=== PATIENT | male | born 1975 | race Caucasian/White ===

== ENCOUNTER 2019-09-14 08:28 | Inpatient (IN) | payer MEDICARE, MEDICAID ==
[~2019-09-14] VITALS: Ht 185.4 cm; Wt 82.6 kg
[2019-09-14 09:35] VITALS: BP 107/58
[2019-09-14] MEDS ORDERED: OLAN10TA3 PO (09:56)
[2019-09-14] MEDS ORDERED: ZOLPIDEM TARTRATE 10 MG TABLET PO PRN (11:15)
[2019-09-14] MEDS ORDERED: HALOPERIDOL 5 MG TABLET PO PRN (11:15)
[2019-09-14] MEDS ORDERED: LORazepam 2 MG TABLET PO PRN (11:15)
[2019-09-14 11:58] VITALS: BP 104/72
[2019-09-14] MEDS: FLUoxetine HCL 20 MG CAPSULE PO SCH (12:35)
[2019-09-14] MEDS ORDERED: ONDANSETRON HCL 4 MG TABLET PO PRN (13:00)
[2019-09-14] MEDS ORDERED: ALBUTEROL SULFATE HFA 90 MCG/PUFF 8 GM INHALER IH PRN (13:00)
[2019-09-14] MEDS ORDERED: DOCUSATE SODIUM 100 MG CAPSULE PO PRN (13:00)
[2019-09-14] MEDS ORDERED: MAG HYDROX/AL HYDROX/SIMETH ES 30 ML SUSPENSION UDCUP PO PRN (13:00)
[2019-09-14] MEDS ORDERED: IBUPROFEN 400 MG TABLET PO PRN (13:00)
[2019-09-14] MEDS ORDERED: MAGNESIUM HYDROXIDE SUSPENSION 30 ML UDCUP PO PRN (13:00)
[2019-09-14] MEDS ORDERED: NICOTINE 14 MG/24 HOUR PATCH TD PRN (13:00)
[2019-09-14] MEDS ORDERED: GuaiFENesin/D-METHORPHAN [SUGAR-FREE] 200-20MG/10 ML SYRUP UDCUP PO PRN (13:00)
[2019-09-14] MEDS ORDERED: CloNIDine HCL 0.1 MG TABLET PO PRN (13:00)
[2019-09-14] MEDS ORDERED: PETROLATUM,WHITE 28 GM JELLY TP PRN (13:00)
[2019-09-14] MEDS ORDERED: LOPERAMIDE HCL 2 MG CAPSULE PO PRN (13:00)
[2019-09-14] MEDS ORDERED: PNEUMOCOCCAL VACCINE POLYVALENT 0.5 ML VIAL [PPSV23] IM ONE (13:15)
[2019-09-14 16:13] VITALS: BP 126/76
[2019-09-14] MEDS: OLANZapine 10 MG RAPDIS TABLET PO SCH (20:41)
[2019-09-15 00:32] VITALS: BP 103/63
[2019-09-15 08:06] VITALS: BP 120/68
[2019-09-15 08:23] LABS: BASOPHILS % (AUTO) 1.2 % (0.0-2.0); EOSINOPHILS % (AUTO) 8.8 % (1.0-6.0); HEMATOCRIT 41.6 % (41-53); LYMPHOCYTES # (AUTO) 1.6 K/uL (1.0-4.8); LYMPHOCYTES % (AUTO) 27.1 % (22.0-44.0); MEAN CORPUSCULAR HEMOGLOBIN 30.8 pg (26.0-34.0); MEAN CORPUSCULAR HGB CONC 33.7 G/dL (31.0-37.0); MEAN CORPUSCULAR VOLUME 91 fL (80-100); MONOCYTES # (AUTO) 0.6 K/uL (0.1-1.0); MONOCYTES % (AUTO) 9.4 % (2.0-9.0); NEUTROPHILS # (AUTO) 3.2 K/uL (1.8-7.7); NEUTROPHILS % (AUTO) 53.5 % (40.0-70.0); PLATELET COUNT (AUTO) 276 K/uL (150-450); RED BLOOD CELL COUNT(AUTO) 4.55 MIL/uL (4.50-5.90)
[2019-09-15 09:00] LABS: ALANINE AMINOTRANSFERASE 26 U/L (12-78); ALBUMIN 3.3 g/dL (3.4-5.0); ALKALINE PHOSPHATASE 65 U/L (46-116); ANION GAP 6 mmol/L (8-16); ASPARTATE AMINOTRANSFERASE 20 U/L (15-37); BILIRUBIN,TOTAL 0.3 mg/dL (0.1-1.0); CALCIUM, TOTAL 8.4 mg/dL (8.8-10.5); CARBON DIOXIDE 28 mmol/L (22-29); CHLORIDE 107 mmol/L (98-107); CREATININE 0.91 mg/dL (0.60-1.30); GLOMERULAR FILTR. RATE CALC > 60 mL/min (>60); GLUCOSE,RANDOM 91 mg/dL (70-110); POTASSIUM 4.4 mmol/L (3.5-5.1); SODIUM SERUM 141 mmol/L (136-145); THYROID STIMULATING HORMONE 0.48 uIU/mL (0.36-3.74); TOTAL PROTEIN, SERUM 6.8 g/dL (6.4-8.2); UREA NITROGEN, BLOOD 14 mg/dL (7-18)
[2019-09-15] MEDS: FLUoxetine HCL 20 MG CAPSULE PO SCH (09:19)
[2019-09-15] MEDS ORDERED: NICOTINE 14 MG/24 HOUR PATCH TD PRN (11:00)
[2019-09-15] MEDS ORDERED: MAGNESIUM HYDROXIDE SUSPENSION 30 ML UDCUP PO PRN (11:00)
[2019-09-15] MEDS ORDERED: CloNIDine HCL 0.1 MG TABLET PO PRN (11:00)
[2019-09-15] MEDS ORDERED: MAG HYDROX/AL HYDROX/SIMETH ES 30 ML SUSPENSION UDCUP PO PRN (11:00)
[2019-09-15] MEDS ORDERED: PETROLATUM,WHITE 28 GM JELLY TP PRN (11:00)
[2019-09-15] MEDS ORDERED: LOPERAMIDE HCL 2 MG CAPSULE PO PRN (11:00)
[2019-09-15] MEDS ORDERED: ONDANSETRON HCL 4 MG TABLET PO PRN (11:00)
[2019-09-15] MEDS ORDERED: ALBUTEROL SULFATE HFA 90 MCG/PUFF 8 GM INHALER IH PRN (11:00)
[2019-09-15] MEDS ORDERED: IBUPROFEN 400 MG TABLET PO PRN (11:00)
[2019-09-15] MEDS ORDERED: DOCUSATE SODIUM 100 MG CAPSULE PO PRN (11:00)
[2019-09-15] MEDS ORDERED: GuaiFENesin/D-METHORPHAN [SUGAR-FREE] 200-20MG/10 ML SYRUP UDCUP PO PRN (11:00)
[2019-09-15 17:01] VITALS: BP 101/63
[2019-09-15] MEDS: OLANZapine 10 MG RAPDIS TABLET PO SCH (20:05)
[2019-09-16 00:43] VITALS: BP 102/65
[2019-09-16 08:11] VITALS: BP 104/60
[2019-09-16] MEDS: FLUoxetine HCL 20 MG CAPSULE PO SCH (08:13)
[2019-09-16 16:19] VITALS: BP 110/60
[2019-09-16] MEDS: OLANZapine 10 MG RAPDIS TABLET PO SCH (20:09)
[2019-09-17 00:13] VITALS: BP 103/71
[2019-09-17 08:07] VITALS: BP 109/64
[2019-09-17] MEDS: FLUoxetine HCL 20 MG CAPSULE PO SCH (08:34)
[2019-09-17 16:02] VITALS: BP 104/61
[2019-09-17] MEDS: OLANZapine 10 MG RAPDIS TABLET PO SCH (20:12)
[2019-09-18 00:46] VITALS: BP 110/60
[2019-09-18 08:16] VITALS: BP 107/65
[2019-09-18] MEDS: FLUoxetine HCL 20 MG CAPSULE PO SCH (08:52)
[2019-09-18] MEDS ORDERED: FLUO-191 PO (08:58)
[2019-09-18] MEDS ORDERED: TUBERCULIN, PURIFIED PROTEIN DERIVATIVE 5 TU/0.1 ML SYRINGE ID ONE (09:15)
[2019-09-18 16:04] VITALS: BP 103/62
[2019-09-18] MEDS: OLANZapine 10 MG RAPDIS TABLET PO SCH (20:05)
[2019-09-19 00:09] VITALS: BP 101/60
[2019-09-19] MEDS: FLUoxetine HCL 20 MG CAPSULE PO SCH (08:10)
[2019-09-19 08:13] VITALS: BP 107/62
[2019-09-19 15:52] VITALS: BP 106/66
[2019-09-19 16:03] VITALS: BP 106/66
[2019-09-19] MEDS: OLANZapine 10 MG RAPDIS TABLET PO SCH (21:02)
[2019-09-20 00:41] VITALS: BP 103/62
[2019-09-20 08:17] VITALS: BP 107/66
[2019-09-20] MEDS: FLUoxetine HCL 20 MG CAPSULE PO SCH (08:59)
[2019-09-20 16:04] VITALS: BP 114/69
[2019-09-20] MEDS: OLANZapine 10 MG RAPDIS TABLET PO SCH (20:23)
[2019-09-20] MEDS ORDERED: OLAN10TA6 PO (21:47)
[2019-09-21 00:12] VITALS: BP 103/64
[2019-09-21 08:08] VITALS: BP 114/69
[2019-09-21] MEDS: FLUoxetine HCL 20 MG CAPSULE PO SCH (08:24)
== END 2019-09-21 10:00 | disposition home or self-care (01) | DRG 885 ==
LOC: B2S 11:26
PROVIDERS: ADMIT Psychiatry & Neurology Psychiatry; ATTEND Psychiatry & Neurology Psychiatry
DX: F25.1 Schizoaffective disorder, depressive type (principal); R45.851 Suicidal ideations; J44.9 Chronic obstructive pulmonary disease, unspecified; R45.87 Impulsiveness; I95.9 Hypotension, unspecified; F41.9 Anxiety disorder, unspecified; Z59.0 Homelessness; Z88.8 Allergy status to other drugs, medicaments and biological substances; Z91.19 Patient's noncompliance with other medical treatment and regimen
CPT/HCPCS: 84443